=== PATIENT | female | born 1990 ===

== ENCOUNTER → 2023-07-18 | Outpatient (CLI) | payer OTHER | END | disposition home or self-care (01) | LOC: LAB SHORT 15:20 → LAB 15:20 | DX: O09.893 Supervision of other high risk pregnancies, third trimester (principal) | CPT/HCPCS: 87081; 87150 ==

== ENCOUNTER 2023-08-16 07:04 | Inpatient (IN) | payer OTHER ==
[~2023-08-16] VITALS: Ht 165.1 cm; Wt 104.0 kg
[2023-08-16] VITALS (33 sets, daily range): BP systolic 99–164; BP diastolic 52–101
[2023-08-16 08:01] LABS: BASOPHILS ABSOLUTE AUTO 0.05 K/mm3 (0.00-0.23); BASOPHILS PERCENT AUTO 1 % (0-2); EOSINOPHILS ABSOLUTE AUTO 0.35 K/mm3 (0.00-0.68); EOSINOPHILS PERCENT AUTO 3 % (0-6); Hematocrit 35.4 % (33.0-51.0); IMMATURE GRAN ABSOLUTE AUTO 0.08 K/mm3 (0.00-0.10); IMMATURE GRAN PERCENT AUTO 1 % (0-1); LYMPHOCYTES ABSOLUTE AUTO 1.72 K/mm3 (0.84-5.20); LYMPHOCYTES PERCENT AUTO 16 % (21-46); MONOCYTES ABSOLUTE AUTO 0.75 K/mm3 (0.16-1.47); MONOCYTES PERCENT AUTO 7 % (4-13); Mean Corpuscular HGB 31.2 pg (26.0-34.0); Mean Corpuscular HGB Conc 33.9 g/dL (31.5-36.5); Mean Corpuscular Volume 92 fL (80-100); Mean Platelet Volume 12.5 fL (9.1-12.4); NEUTROPHILS ABSOLUTE AUTO 7.58 K/mm3 (1.96-9.15); NEUTROPHILS PERCENT AUTO 72 % (41-73); Platelet Count 170 K/mm3 (150-400); RDW Coefficient Variation 13.1 % (11.7-14.2); RDW Standard Deviation 43.2 fL (35.1-46.3); Red Blood Cell Count 3.85 M/mm3 (3.80-5.20); White Blood Cell Count 10.53 K/mm3 (4.00-11.30)
--- NOTE | 2023-08-16 16:57 | NUR ---
up voided linen changed
[2023-08-17 01:33] VITALS: BP 129/68
[2023-08-17 05:52] VITALS: BP 135/76
[2023-08-17 08:33] VITALS: BP 141/79
[2023-08-17 11:46] VITALS: BP 130/79
[2023-08-17 14:37] VITALS: BP 139/80
== END 2023-08-17 15:00 | disposition home or self-care (01) | DRG 807 ==
LOC: BC 07:04 → OBS 07:04 → BC 07:27
PROVIDERS: ADMIT Obstetrics & Gynecology
PROC: 10E0XZZ Delivery of Products of Conception, External Approach (ICD-10-PCS; principal; 2023-08-16)
PROC: 10907ZC Drainage of Amniotic Fluid, Therapeutic from Products of Conception, Via Natural or Artificial Opening (ICD-10-PCS; 2023-08-16)
PROC: 3E0R3BZ Introduction of Anesthetic Agent into Spinal Canal, Percutaneous Approach (ICD-10-PCS; 2023-08-16)
PROC: 00HU33Z Insertion of Infusion Device into Spinal Canal, Percutaneous Approach (ICD-10-PCS; 2023-08-16)
PROC: 0HQ9XZZ Repair Perineum Skin, External Approach (ICD-10-PCS; 2023-08-16)
PROC: 3E033VJ Introduction of Other Hormone into Peripheral Vein, Percutaneous Approach (ICD-10-PCS; 2023-08-16)
DX: O48.0 Post-term pregnancy (principal); Z37.0 Single live birth; O99.824 Streptococcus B carrier state complicating childbirth; Z3A.40 40 weeks gestation of pregnancy; Z98.890 Other specified postprocedural states; Z88.0 Allergy status to penicillin; Z88.1 Allergy status to other antibiotic agents; O70.0 First degree perineal laceration during delivery
CPT/HCPCS: 36415; 51702; 85025; 86850; 86900; 86901; A9270; J0690; J1885; J2405; J2590; J7120

== ENCOUNTER → 2024-07-10 | Outpatient (CLI) | payer OTHER | END | disposition home or self-care (01) | LOC: LAB SHORT 09:19 → LAB 09:19 | DX: O09.893 Supervision of other high risk pregnancies, third trimester (principal) | CPT/HCPCS: 87081; 87150 ==

== ENCOUNTER 2024-08-01 07:15 | Inpatient (IN) | payer OTHER ==
[2024-08-01] VITALS (31 sets, daily range): BP systolic 114–178; BP diastolic 58–92
[~2024-08-01] VITALS: Ht 165.1 cm; Wt 111.4 kg
[2024-08-01] MEDS ORDERED: Methylergonovine Maleate 0.2MG / ML 1ML Amp IM PRN ×2 (07:40→16:00)
[2024-08-01] MEDS ORDERED: Misoprostol 200 MCG Tab BC PRN (07:40)
[2024-08-01] MEDS ORDERED: Misoprostol 200 MCG Tab PR PRN ×2 (07:40→16:00)
[2024-08-01] MEDS ORDERED: OXYTOCIN/RINGER'S LACTATE 500 ML IV SCH ×2 (07:40)
[2024-08-01] MEDS ORDERED: Lactated Ringer's 1,000 ML IV SCH ×3 (07:40→16:00)
[2024-08-01] MEDS ORDERED: ePHEDrine Sulfate 50 MG/ML 1ML Injection XX PRN (07:40)
[2024-08-01] MEDS ORDERED: Oxytocin 10 Unit / ML Vial IM PRN (07:40)
[2024-08-01] MEDS ORDERED: FentaNYL 2mcg/ml-Bup 0.1% Epd 250 ML EPI PRN (07:40)
[2024-08-01] MEDS ORDERED: Calcium Carbonate 500 MG Tab Chew PO PRN (07:45)
[2024-08-01] MEDS ORDERED: Acetaminophen 500 MG Tab PO PRN ×2 (07:45→16:00)
[2024-08-01] MEDS ORDERED: CeFAZolin Sodium 2,000 MG in NS 100 ML IV ONE (07:45)
[2024-08-01] MEDS ORDERED: Carboprost Tromethamine 250 MCG/ML 1ML Amp IM SCH (07:45)
[2024-08-01] MEDS ORDERED: Ondansetron HCl 2 MG / ML 2ML Vial IV PRN (07:45)
[2024-08-01] MEDS ORDERED: Tranexamic Acid 100 ML IV SCH (07:50)
[2024-08-01 08:00] LABS: BASOPHILS ABSOLUTE AUTO 0.05 K/mm3 (0.00-0.23); BASOPHILS PERCENT AUTO 1 % (0-2); EOSINOPHILS ABSOLUTE AUTO 0.28 K/mm3 (0.00-0.68); EOSINOPHILS PERCENT AUTO 3 % (0-6); Hematocrit 34.4 % (33.0-51.0); Hemoglobin 11.3 g/dL (11.5-16.0); IMMATURE GRAN ABSOLUTE AUTO 0.09 K/mm3 (0.00-0.10); IMMATURE GRAN PERCENT AUTO 1 % (0-1); LYMPHOCYTES ABSOLUTE AUTO 1.65 K/mm3 (0.84-5.20); LYMPHOCYTES PERCENT AUTO 17 % (21-46); MONOCYTES PERCENT AUTO 8 % (4-13); Mean Corpuscular HGB Conc 32.8 g/dL (31.5-36.5); Mean Corpuscular Volume 91 fL (80-100); NEUTROPHILS ABSOLUTE AUTO 6.95 K/mm3 (1.96-9.15); NEUTROPHILS PERCENT AUTO 71 % (41-73); Platelet Count 202 K/mm3 (150-400); RDW Coefficient Variation 13.8 % (11.7-14.2); RDW Standard Deviation 46.2 fL (35.1-46.3); Red Blood Cell Count 3.77 M/mm3 (3.80-5.20); White Blood Cell Count 9.82 K/mm3 (4.00-11.30)
[2024-08-01] MEDS ORDERED: PRENATAL TABLE1 EAC2 PO (08:12)
[2024-08-01] MEDS ORDERED: Aspir 8181 MG PO (08:12)
[2024-08-01] MEDS ORDERED: CeFAZolin Sodium 1,000 MG in NS 100 ML IV SCH (16:00)
[2024-08-01] MEDS ORDERED: Ibuprofen 400 MG Tab PO PRN (16:00)
[2024-08-01] MEDS ORDERED: Rho(D) Immune Globulin 300 MCG / SYR IM SCH (16:00)
[2024-08-01] MEDS ORDERED: FLU VACC TS2024-25(6MOS UP)/PF 45 MCG/0.5 ML SYRINGE IM SCH (16:05)
[2024-08-01] MEDS ORDERED: Witch Hazel/Glycerin PADS TOP PRN (16:05)
[2024-08-01] MEDS ORDERED: Docusate Sodium 100 MG Cap PO PRN (16:05)
[2024-08-01] MEDS ORDERED: Benzocaine Topical Anesthetic Spray 60GM TOP PRN (16:05)
[2024-08-01] MEDS ORDERED: Ketorolac Tromethamine 30mg Vial IV PRN (16:10)
[2024-08-02 03:39] VITALS: BP 134/85
[2024-08-02 08:05] VITALS: BP 139/70
[2024-08-02] MEDS ORDERED: Prenatal Vit/FE Fumarate/FA 1 Tab PO SCH (09:00)
[2024-08-02 11:38] VITALS: BP 156/90
[2024-08-02 15:47] VITALS: BP 138/94
[2024-08-02 15:48] VITALS: BP 142/76
== END 2024-08-02 16:58 | disposition home or self-care (01) | DRG 807 ==
LOC: BC 07:15 → OBS 07:15 → BC 07:37
PROVIDERS: ADMIT Obstetrics & Gynecology
PROC: 10E0XZZ Delivery of Products of Conception, External Approach (ICD-10-PCS; principal; 2024-08-01)
PROC: 00HU33Z Insertion of Infusion Device into Spinal Canal, Percutaneous Approach (ICD-10-PCS; 2024-08-01)
PROC: 3E0R3BZ Introduction of Anesthetic Agent into Spinal Canal, Percutaneous Approach (ICD-10-PCS; 2024-08-01)
DX: O99.824 Streptococcus B carrier state complicating childbirth (principal); Z37.0 Single live birth; Z3A.37 37 weeks gestation of pregnancy; Z67.10 Type A blood, Rh positive; Z88.0 Allergy status to penicillin; Z88.1 Allergy status to other antibiotic agents; Z79.82 Long term (current) use of aspirin; Z79.899 Other long term (current) drug therapy
CPT/HCPCS: 36415; 51702; 85025; 86850; 86900; 86901; 86923; A9270; J0690; J1885; J2405; J2590; J7120

== ENCOUNTER → 2024-10-22 | Outpatient (CLI) | payer OTHER ==
[~2024-10-22] MED LIST: Aspir 8181 MG PO; PRENATAL TABLE1 EAC2 PO
[2024-10-22 17:07] LABS: Bacterial Vaginosis PCR Negative (NEGATIVE); Candida Group, PCR NOT DETECTED (NOT DETECT); Candida glabrata-krusei, PCR NOT DETECTED (NOT DETECT)
[2024-10-27 11:31] LABS: HPV HIGH RISK BY TMA Not Detected; HPV SOURCE Cervical
== END ==
LOC: LAB SHORT 14:10 → LAB 14:10
PROVIDERS: Obstetrics & Gynecology
DX: Z01.419 Encounter for gynecological examination (general) (routine) without abnormal findings (principal); N89.8 Other specified noninflammatory disorders of vagina
CPT/HCPCS: 87481; 87624; 87661; 87801; G0123